=== PATIENT | female | born 1995 ===

== ENCOUNTER 2016-07-13 19:31 | Emergency (ER) | payer OTHER ==
[2016-07-13 20:50] VITALS: BP 140/104; PULSE 73; RESP 18; TEMP 98.4; O2SAT 100
--- NOTE | 2016-07-13 21:40 | ED PDOC ---
Lower Extremity Pain/Injury Time Seen by Provider: 07/13/16 21:32 Chief Complaint (Nursing): Lower Extremity Problem/Injury Chief Complaint (Provider): Right Knee Pain History Per: Patient History/Exam Limitations: no limitations Onset/Duration Of Symptoms: Days (x1) Current Symptoms Are (Timing): Still Present Additional Complaint(s): Fede Jane is a 21 year old female that presents to the ED with a chief complaint of right knee pain and swelling that she has been experiencing for the past day. Patient denies any injuries or new activities, and states that she has not taken any medication for her pain. Past Medical History Reviewed: Historical Data, Nursing Documentation, Vital Signs Vital Signs: Last Vital Signs Temp 98.4 F 07/13/16 20:48 Pulse 73 07/13/16 20:48 Resp 18 07/13/16 20:48 BP 140/104 H 07/13/16 20:48 Pulse Ox 100 07/13/16 20:48 - Medical History PMH: No Chronic Diseases - Family History Family History: States: Unknown Family Hx - Social History Current smoker - smoking cessation education provided: No Alcohol: None - Home Medications Home Medications: Ambulatory Orders Medication Instructions Recorded Ibuprofen [Motrin] 600 mg PO Q6 PRN #20 tab 01/12/14 Oxycodone HCl/Acetaminophen 1 tab PO Q4 #5 tab 01/12/14 [Percocet 325 mg-5 mg] diaZEpam [Valium] 5 mg PO BID PRN #10 tab 01/12/14 Ibuprofen [Motrin Tab] 800 mg PO Q6H PRN #20 tab 07/13/16 - Allergies Allergies/Adverse Reactions: Allergies Allergy/AdvReac Type Severity Reaction Status Date / Time No Known Allergies Allergy Unverified 01/12/14 20:43 Review of Systems Musculoskeletal: Positive for: Leg Pain (right knee pain and swelling) Physical Exam - Reviewed Nursing Documentation Reviewed: Yes Vital Signs Reviewed: Yes - Physical Exam Appears: Positive for: Non-toxic, No Acute Distress Head Exam: Positive for: ATRAUMATIC, NORMOCEPHALIC Skin: Positive for: Normal Color, Warm Eye Exam: Positive for: Normal appearance, EOMI, PERRL Pulses-Dorsalis Pedis (L): 2+ Pulses-Dorsalis Pedis (R): 2+ Pulses-Post. Tibialis (L): 2+ Pulses-Post. Tibialis (R): 2+ Extremity: Positive for: Tenderness (TTP right patella and TTP between right MCL and right patella. ). Negative for: Normal ROM (decreased flexion right knee due to pain), Deformity (no bony deformity), Other (No ecchymosis right knee. ) Neurologic/Psych: Positive for: Alert, Oriented - ECG O2 Sat by Pulse Oximetry: 100 (RA) Pulse Ox Interpretation: Normal Medical Decision Making Medical Decision Making: Impression: Right Knee Pain Plan: * X-Ray Right Knee * Ibuprofen 600 mg PO * Urine * Reevaluation Pt reports feeling better after motrin. Knee x-ray without acute fracture or dislocation Scribe Attestation: Documented by Autumn Oliveira, acting as a scribe for Romelia Ramey PA-C. Provider Scribe Attestation: All medical record entries made by the Scribe were at my direction and personally dictated by me. I have reviewed the chart and agree that the record accurately reflects my personal performance of the history, physical exam, medical decision making, and the department course for this patient. I have also personally directed, reviewed, and agree with the discharge instructions and disposition. Disposition - Clinical Impression Clinical Impression: Ankle pain - Patient ED Disposition Is Patient to be Admitted: No Counseled Patient/Family Regarding: Diagnosis, Need For Followup, Rx Given - Disposition Referrals: [facility] [place] [Outside] David Guevara MD [Staff Provider] - Disposition: Routine/Home Disposition Time: 22:41 Condition: STABLE Prescriptions: Ibuprofen [Motrin Tab] 800 mg PO Q6H PRN #20 tab PRN Reason: Pain Instructions: Knee Pain (ED)
--- NOTE | 2016-07-14 09:46 | RAD ---
HISTORY: pain COMPARISON: No prior FINDINGS: BONES: Normal. No fracture. JOINTS: Normal. No osteoarthritis. SOFT TISSUE: Normal. OTHER FINDINGS: None . IMPRESSION: Normal Bone Xray.
== END 2016-07-13 22:51 | disposition home or self-care (01) ==
LOC: H.ER 19:31
DX: M25.561 Pain in right knee (principal)